=== PATIENT | female | born 1970 | race Asian ===

== ENCOUNTER 2024-07-02 18:56 | Inpatient (IN) | payer OTHER ==
[~2024-07-02] VITALS: Ht 160 cm; Wt 61.7 kg
[2024-07-02 20:04] LABS: BASO % 0.2 % (0.0-1.0); EOS % 0.1 % (0.0-3.0); HEMATOCRIT 41.3 % (36.0-47.0); HEMOGLOBIN 14.5 g/dl (12.0-15.5); LYMPH # 0.9 10^3/uL (1.5-5.0); LYMPH % 5.5 % (24.0-44.0); MEAN CORPUSCULAR HEMOGLOBIN 29.5 pg (27.0-33.0); MEAN CORPUSCULAR HGB CONC 35.1 g/dl (32.0-36.5); MEAN CORPUSCULAR VOLUME 83.9 fl (80.0-96.0); MONO # 1.2 10^3/uL (0.0-0.8); MONO % 6.8 % (2.0-8.0); NEUTROPHILS # 14.8 10^3/uL (1.5-8.5); NEUTROPHILS % 86.6 % (36.0-66.0); PLATELET COUNT, AUTOMATED 346 10^3/uL (150-450); RED BLOOD COUNT 4.92 10^6/uL (4.00-5.40); WHITE BLOOD COUNT 17.1 10^3/uL (4.0-10.0)
[2024-07-02 20:21] LABS: ERYTHROCYTE SEDIMENTATION RATE 108 mm/hr (0-30)
[2024-07-02 20:50] LABS: BLOOD UREA NITROGEN 21 MG/DL (9-23); C REACTIVE PROTEIN QUANTITATIV 28.16 MG/DL (<1.0); CALCIUM LEVEL 8.8 MG/DL (8.5-10.1); CARBON DIOXIDE LEVEL 23 MMOL/L (20-31); CHLORIDE LEVEL 92 MMOL/L (98-107); CREATININE FOR GFR 0.49 MG/DL (0.55-1.30); GLOMERULAR FILTRATION RATE > 60.0 (>51); GLUCOSE, FASTING 448 MG/DL (60-100); POTASSIUM SERUM 4.9 MMOL/L (3.5-5.1); SODIUM LEVEL 129 MMOL/L (136-145)
[2024-07-02] MEDS ORDERED: ISOVUE-370 76% 100ML VIAL As Ordered ONE (21:24)
[2024-07-02] MEDS: NS (Normal Saline) 0.9% 1,000 ML IV ONE (21:45)
[2024-07-02] MEDS: AMPICILLIN SOD/SULBACTAM SOD 3 GM in DEXTROSE 5% (D5W) MINI-BAG PLU 100 ML IV ONE (21:45)
[2024-07-02] MEDS: HumuLIN R (REGULAR) INSULIN (NovoLIN R) **100U/ML** PER UNIT IV ONE (21:45)
[2024-07-02] MEDS: ONDANSETRON 4MG 2ML VIAL IV ONE (22:47)
[2024-07-02] MEDS: MORPHINE 2 MG/ML 1ML VIAL IV ONE (22:47)
[2024-07-02] MEDS: dexAMETHasone 20MG/5ML VIAL IV ONE (23:59)
[2024-07-03] MEDS: MORPHINE 4 MG/ML 1ML VIAL IV PRN (00:23)
[2024-07-03] MEDS: HumuLIN R (REGULAR) INSULIN (NovoLIN R) **100U/ML** PER UNIT IV ONE (00:24)
[2024-07-03] MEDS ORDERED: GLUCAGON INJ 1MG VIAL SC PRN (00:25)
[2024-07-03] MEDS ORDERED: GLUCOSE 4 GM CHEW PO PRN (00:25)
[2024-07-03] MEDS ORDERED: DEXTROSE 50% 50ML SYRINGE IV PRN (00:25)
[2024-07-03 00:47] LABS: HEMOGLOBIN A1c 11.7 % (4.0-6.0)
[2024-07-03] MEDS ORDERED: IBUP-1114 PO (01:04)
[2024-07-03] MEDS ORDERED: OXYC1TAB23 PO (01:04)
[2024-07-03] MEDS ORDERED: AMOX500C PO (01:04)
[2024-07-03] MEDS ORDERED: CLIN-250 PO (01:04)
[2024-07-03] MEDS ORDERED: PERI12LIQ PO (01:04)
[2024-07-03] MEDS ORDERED: HOME MED LIST COMPLETE! XX SCH (01:05)
[2024-07-03] MEDS: INSULIN LISPRO (NovoLOG) PER UNIT SC SCH ×3 (01:36→20:51)
[2024-07-03] MEDS: LR 1,000 ML IV SCH (01:36)
[2024-07-03 02:19] VITALS: BP 150/87; TEMP 98.1; O2SAT 95
[2024-07-03 04:21] VITALS: BP 125/79; TEMP 98.1; O2SAT 95
[2024-07-03] MEDS: AMPICILLIN SOD/SULBACTAM SOD 3 GM in DEXTROSE 5% (D5W) MINI-BAG PLU 100 ML IV SCH (04:29)
[2024-07-03] MEDS: KETOROLAC 30 MG/ML 1ML VIAL IV ONE (04:30)
[2024-07-03 06:06] LABS: HEMATOCRIT 38.1 % (36.0-47.0); HEMOGLOBIN 13.1 g/dl (12.0-15.5); MEAN CORPUSCULAR HEMOGLOBIN 28.5 pg (27.0-33.0); MEAN CORPUSCULAR HGB CONC 34.4 g/dl (32.0-36.5); MEAN CORPUSCULAR VOLUME 82.8 fl (80.0-96.0); PLATELET COUNT, AUTOMATED 337 10^3/uL (150-450); WHITE BLOOD COUNT 14.1 10^3/uL (4.0-10.0)
[2024-07-03 06:17] LABS: INR 1.02; PROTHROMBIN TIME 13.7 SECONDS (12.5-14.5)
[2024-07-03 06:29] LABS: BLOOD UREA NITROGEN 17 MG/DL (9-23); CALCIUM LEVEL 8.2 MG/DL (8.5-10.1); CARBON DIOXIDE LEVEL 22 MMOL/L (20-31); CHLORIDE LEVEL 99 MMOL/L (98-107); CHOLESTEROL LEVEL 188 MG/DL (<200); CHOLESTEROL RISK RATIO 5.15 (<5); CREATININE FOR GFR 0.41 MG/DL (0.55-1.30); GLOMERULAR FILTRATION RATE > 60.0 (>51); GLUCOSE, FASTING 233 MG/DL (60-100); HDL CHOLESTEROL 36.5 MG/DL (>40); LDL CHOLESTEROL 123.7 MG/DL (<100); NON-HDL-C 151.5 MG/DL; POTASSIUM SERUM 4.8 MMOL/L (3.5-5.1); SODIUM LEVEL 135 MMOL/L (136-145); TRIGLYCERIDES LEVEL 139 MG/DL (<150)
[2024-07-03] MEDS ORDERED: VANCOMYCIN HCL 1,000 MG, VIAL MATE ADAPTER 1 EACH in NS 250 ML IV SCH (07:45)
[2024-07-03 08:32] LABS: ANTI-STREPTOLYSIN O QUANT < 25.0 IU/ML (<195)
[2024-07-03] MEDS: VANCOMYCIN HCL 1,250 MG, VIAL MATE ADAPTER 1 EACH in NS 250 ML IV ONE (09:42)
[2024-07-03 09:44] LABS: PROCALCITONIN 0.34 ng/ml
[2024-07-03] MEDS ORDERED: LIDOCAINE 1% MDV 20ML VIAL As Ordered ONE (10:17)
[2024-07-03] MEDS: ENOXAPARIN 40MG/0.4ML SYRINGE (J1650 PER 10MG) SC SCH (12:36)
[2024-07-03] MEDS: CHLORHEXIDINE GLUCONATE 0.12 % 15ML UDC (PERIDEX ORAL RINSE) MT SCH (12:37)
[2024-07-03 12:45] VITALS: BP 145/92; TEMP 97.7; O2SAT 96
[2024-07-03] MEDS: VANCOMYCIN HCL 750 MG, VIAL MATE ADAPTER 1 EACH in NS 250 ML IV SCH (15:34)
[2024-07-03] MEDS: PERCOCET 5MG/325MG TAB PO PRN (17:51)
[2024-07-03 20:33] VITALS: BP 152/91; TEMP 97.7; O2SAT 95
[2024-07-03] MEDS: LanTUS (INSULIN GLARGINE INJ) 1 UNITS/0.01 ML SC SCH (20:51)
[2024-07-04] MEDS: MORPHINE 2 MG/ML 1ML VIAL IV PRN (04:06)
[2024-07-04 04:21] VITALS: BP 150/90; TEMP 97.9; O2SAT 94
[2024-07-04 05:56] LABS: HEMATOCRIT 40.1 % (36.0-47.0); MEAN CORPUSCULAR HEMOGLOBIN 28.9 pg (27.0-33.0); MEAN CORPUSCULAR HGB CONC 34.9 g/dl (32.0-36.5); MEAN CORPUSCULAR VOLUME 82.9 fl (80.0-96.0); PLATELET COUNT, AUTOMATED 400 10^3/uL (150-450); RED BLOOD COUNT 4.84 10^6/uL (4.00-5.40); WHITE BLOOD COUNT 13.6 10^3/uL (4.0-10.0)
[2024-07-04 06:18] LABS: C REACTIVE PROTEIN QUANTITATIV 14.07 MG/DL (<1.0)
[2024-07-04 06:20] LABS: ALBUMIN 2.1 G/DL (3.2-5.2); ALKALINE PHOSPHATASE 140 U/L (35-104); ALT/SGPT 20 U/L (7.0-40); AST/SGOT 16 U/L (<34); BILIRUBIN,TOTAL 0.3 MG/DL (0.3-1.2); BLOOD UREA NITROGEN 13 MG/DL (9-23); CALCIUM LEVEL 8.6 MG/DL (8.5-10.1); CARBON DIOXIDE LEVEL 27 MMOL/L (20-31); CHLORIDE LEVEL 98 MMOL/L (98-107); CREATININE FOR GFR 0.35 MG/DL (0.55-1.30); GLOMERULAR FILTRATION RATE > 60.0 (>51); GLUCOSE, FASTING 392 MG/DL (60-100); POTASSIUM SERUM 4.5 MMOL/L (3.5-5.1); SODIUM LEVEL 136 MMOL/L (136-145); TOTAL PROTEIN 6.3 G/DL (5.7-8.2)
[2024-07-04 06:25] LABS: PROCALCITONIN 0.23 ng/ml
[2024-07-04] MEDS: LanTUS (INSULIN GLARGINE INJ) 1 UNITS/0.01 ML SC SCH (08:43)
[2024-07-04] MEDS ORDERED: ENOXAPARIN 40MG/0.4ML SYRINGE (J1650 PER 10MG) SC SCH (09:00)
[2024-07-04 12:00] VITALS: BP 142/84; TEMP 97.7; O2SAT 96
[2024-07-04] MEDS: VANCOMYCIN HCL 1,000 MG, VIAL MATE ADAPTER 1 EACH in NS 250 ML IV SCH (15:05)
[2024-07-04] MEDS: INSULIN LISPRO (NovoLOG) PER UNIT SC SCH (17:15)
[2024-07-04 20:00] VITALS: BP 166/92; TEMP 97.5; O2SAT 97
[2024-07-05] VITALS (8 sets, daily range): BP systolic 124–157; BP diastolic 74–94; TEMP 97.5–97.7; O2SAT 97–99
[2024-07-05 06:02] LABS: BASO % 0.3 % (0.0-1.0); EOS % 0.2 % (0.0-3.0); HEMATOCRIT 42.1 % (36.0-47.0); HEMOGLOBIN 14.6 g/dl (12.0-15.5); LYMPH # 3.3 10^3/uL (1.5-5.0); LYMPH % 28.2 % (24.0-44.0); MEAN CORPUSCULAR HEMOGLOBIN 28.8 pg (27.0-33.0); MEAN CORPUSCULAR HGB CONC 34.7 g/dl (32.0-36.5); MONO # 1.1 10^3/uL (0.0-0.8); MONO % 9.3 % (2.0-8.0); NEUTROPHILS # 7.1 10^3/uL (1.5-8.5); NEUTROPHILS % 60.1 % (36.0-66.0); PLATELET COUNT, AUTOMATED 388 10^3/uL (150-450); RED BLOOD COUNT 5.07 10^6/uL (4.00-5.40); WHITE BLOOD COUNT 11.8 10^3/uL (4.0-10.0)
[2024-07-05 06:33] LABS: BLOOD UREA NITROGEN 10 MG/DL (9-23); C REACTIVE PROTEIN QUANTITATIV 6.19 MG/DL (<1.0); CALCIUM LEVEL 8.6 MG/DL (8.5-10.1); CARBON DIOXIDE LEVEL 34 MMOL/L (20-31); CHLORIDE LEVEL 99 MMOL/L (98-107); CREATININE FOR GFR 0.38 MG/DL (0.55-1.30); GLOMERULAR FILTRATION RATE > 60.0 (>51); GLUCOSE, FASTING 88 MG/DL (60-100); POTASSIUM SERUM 3.7 MMOL/L (3.5-5.1); SODIUM LEVEL 142 MMOL/L (136-145)
[2024-07-05] MEDS: LanTUS (INSULIN GLARGINE INJ) 1 UNITS/0.01 ML SC SCH (09:00)
[2024-07-05] MEDS: LIDOCAINE W/EPINEPHRINE 1% 20ML VIAL SC ONE (10:53)
[2024-07-05] MEDS ORDERED: fentaNYL 100 MCG/2 ML INJECTION IV PRN (11:50)
[2024-07-05] MEDS ORDERED: MORPHINE 2 MG/ML 1ML VIAL IV PRN (11:50)
[2024-07-05] MEDS ORDERED: oxyCODONE 5MG TAB PO PRN ×2 (11:50→17:00)
[2024-07-05] MEDS ORDERED: ONDANSETRON 4MG 2ML VIAL IV PRN ×2 (11:50→17:00)
[2024-07-05] MEDS ORDERED: diphenhydrAMINE 50MG/ML VIAL IV PRN ×2 (11:50→17:00)
[2024-07-05] MEDS: NS (Normal Saline) 0.9% 1,000 ML IV SCH (15:07)
[2024-07-05] MEDS ORDERED: SUGAMMADEX SODIUM 500 MG/5 ML VIAL (BRIDION) As Ordered ONE (15:42)
[2024-07-05] MEDS ORDERED: PHENYLephrine 500MCG 5ML (100MCG/ML) SYRINGE As Ordered ONE (15:50)
[2024-07-05] MEDS: LIDOCAINE W/EPINEPHRINE 1% 20ML VIAL As Ordered ONE (16:00)
[2024-07-05] MEDS ORDERED: KETOROLAC 30 MG/ML 1ML VIAL As Ordered ONE (16:54)
[2024-07-05] MEDS ORDERED: LIDOCAINE 2% 100MG/5ML SDV (FOR ANES.) As Ordered ONE (16:54)
[2024-07-05] MEDS ORDERED: ROCURONIUM BROMIDE 50MG/5ML VIAL As Ordered ONE (16:54)
[2024-07-05] MEDS ORDERED: propofoL 200 MG/20 ML VIAL As Ordered ONE (16:54)
[2024-07-05] MEDS ORDERED: ONDANSETRON 4MG 2ML VIAL As Ordered ONE (16:54)
[2024-07-05] MEDS ORDERED: fentaNYL 100 MCG/2 ML INJECTION As Ordered ONE (16:54)
[2024-07-05] MEDS ORDERED: MIDAZOLAM INJ 2MG/2ML VIAL As Ordered ONE (16:54)
[2024-07-05] MEDS: LR 1,000 ML IV SCH (17:00)
[2024-07-05] MEDS: fentaNYL 100 MCG/2 ML INJECTION IV PRN (17:04)
[2024-07-05] MEDS: MORPHINE 2 MG/ML 1ML VIAL IV PRN (17:17)
[2024-07-05] MEDS: VANCOMYCIN HCL 1,000 MG, VIAL MATE ADAPTER 1 EACH in NS 250 ML IV SCH (21:36)
[2024-07-05] MEDS: ATORVASTATIN 20 MG TAB PO SCH (21:37)
[2024-07-05] MEDS: ACETAMINOPHEN 325 MG TAB PO PRN (21:38)
[2024-07-06] VITALS (8 sets, daily range): BP systolic 99–187; BP diastolic 73–98; TEMP 97.2–97.9; O2SAT 95–97
[2024-07-06] MEDS: LR 1,000 ML IV SCH (05:00)
[2024-07-06] MEDS: ANEXSIA, NORCO 7.5MG/325MG TABLET(HYDROCODONE/APAP) PO PRN (06:01)
[2024-07-06 06:25] LABS: BASO % 0.4 % (0.0-1.0); HEMATOCRIT 43.1 % (36.0-47.0); HEMOGLOBIN 14.7 g/dl (12.0-15.5); LYMPH # 1.7 10^3/uL (1.5-5.0); MEAN CORPUSCULAR HGB CONC 34.1 g/dl (32.0-36.5); MONO # 0.7 10^3/uL (0.0-0.8); MONO % 6.2 % (2.0-8.0); NEUTROPHILS % 75.7 % (36.0-66.0); PLATELET COUNT, AUTOMATED 399 10^3/uL (150-450); RED BLOOD COUNT 5.07 10^6/uL (4.00-5.40); WHITE BLOOD COUNT 10.5 10^3/uL (4.0-10.0)
[2024-07-06 06:52] LABS: C REACTIVE PROTEIN QUANTITATIV 7.26 MG/DL (<1.0)
[2024-07-06 06:56] LABS: BLOOD UREA NITROGEN 12 MG/DL (9-23); CALCIUM LEVEL 8.1 MG/DL (8.5-10.1); CARBON DIOXIDE LEVEL 32 MMOL/L (20-31); CHLORIDE LEVEL 97 MMOL/L (98-107); CREATININE FOR GFR 0.44 MG/DL (0.55-1.30); GLOMERULAR FILTRATION RATE > 60.0 (>51); GLUCOSE, FASTING 439 MG/DL (60-100); POTASSIUM SERUM 4.7 MMOL/L (3.5-5.1); SODIUM LEVEL 136 MMOL/L (136-145)
[2024-07-06] MEDS: LOSARTAN 25 MG TAB PO SCH (11:30)
[2024-07-06] MEDS: VANCOMYCIN HCL 500 MG in DEXTROSE 5% (D5W) MINI-BAG PLU 100 ML IV ONE (12:08)
[2024-07-07 04:03] VITALS: BP 160/95; TEMP 97.5; O2SAT 93
[2024-07-07 06:18] LABS: BASO % 0.5 % (0.0-1.0); EOS # 0.2 10^3/uL (0.0-0.5); HEMATOCRIT 38.8 % (36.0-47.0); HEMOGLOBIN 13.1 g/dl (12.0-15.5); LYMPH # 4.6 10^3/uL (1.5-5.0); LYMPH % 57.1 % (24.0-44.0); MEAN CORPUSCULAR HEMOGLOBIN 29.4 pg (27.0-33.0); MEAN CORPUSCULAR HGB CONC 33.8 g/dl (32.0-36.5); MONO # 0.5 10^3/uL (0.0-0.8); MONO % 6.2 % (2.0-8.0); NEUTROPHILS # 2.5 10^3/uL (1.5-8.5); NEUTROPHILS % 31.1 % (36.0-66.0); PLATELET COUNT, AUTOMATED 328 10^3/uL (150-450); RED BLOOD COUNT 4.46 10^6/uL (4.00-5.40)
[2024-07-07 06:40] LABS: C REACTIVE PROTEIN QUANTITATIV 3.23 MG/DL (<1.0)
[2024-07-07 06:42] LABS: BLOOD UREA NITROGEN 7 MG/DL (9-23); CARBON DIOXIDE LEVEL 30 MMOL/L (20-31); CHLORIDE LEVEL 100 MMOL/L (98-107); CREATININE FOR GFR 0.41 MG/DL (0.55-1.30); GLOMERULAR FILTRATION RATE > 60.0 (>51); GLUCOSE, FASTING 163 MG/DL (60-100); POTASSIUM SERUM 3.9 MMOL/L (3.5-5.1); SODIUM LEVEL 141 MMOL/L (136-145)
[2024-07-07 12:00] VITALS: BP 159/94; TEMP 97.5; O2SAT 97
[2024-07-07 20:00] VITALS: BP_SYST 158; BP_DIAS 9; BP_DIAS 90; TEMP 97.7; O2SAT 97
[2024-07-08] VITALS (7 sets, daily range): BP systolic 147–171; BP diastolic 77–99; TEMP 97.2–97.9; O2SAT 95–98
[2024-07-08 05:51] LABS: BASO % 0.6 % (0.0-1.0); EOS # 0.3 10^3/uL (0.0-0.5); EOS % 4.2 % (0.0-3.0); HEMATOCRIT 41.8 % (36.0-47.0); HEMOGLOBIN 14.4 g/dl (12.0-15.5); LYMPH # 2.9 10^3/uL (1.5-5.0); LYMPH % 44.3 % (24.0-44.0); MEAN CORPUSCULAR HEMOGLOBIN 29.3 pg (27.0-33.0); MEAN CORPUSCULAR HGB CONC 34.4 g/dl (32.0-36.5); MONO # 0.5 10^3/uL (0.0-0.8); MONO % 7.4 % (2.0-8.0); NEUTROPHILS # 2.7 10^3/uL (1.5-8.5); NEUTROPHILS % 41.4 % (36.0-66.0); PLATELET COUNT, AUTOMATED 352 10^3/uL (150-450); RED BLOOD COUNT 4.92 10^6/uL (4.00-5.40); WHITE BLOOD COUNT 6.6 10^3/uL (4.0-10.0)
[2024-07-08 06:18] LABS: BLOOD UREA NITROGEN 5 MG/DL (9-23); C REACTIVE PROTEIN QUANTITATIV 1.92 MG/DL (<1.0); CALCIUM LEVEL 8.6 MG/DL (8.5-10.1); CARBON DIOXIDE LEVEL 35 MMOL/L (20-31); CHLORIDE LEVEL 99 MMOL/L (98-107); CREATININE FOR GFR 0.39 MG/DL (0.55-1.30); GLOMERULAR FILTRATION RATE > 60.0 (>51); GLUCOSE, FASTING 152 MG/DL (60-100); POTASSIUM SERUM 4.2 MMOL/L (3.5-5.1); SODIUM LEVEL 140 MMOL/L (136-145)
[2024-07-08] MEDS ORDERED: oxyCODONE 5MG TAB PO PRN (13:55)
[2024-07-08] MEDS: oxyCODONE 5MG TAB PO PRN (16:42)
[2024-07-08] MEDS: LOSARTAN 25 MG TAB PO SCH (20:51)
[2024-07-09 04:17] VITALS: BP 162/87; TEMP 97.7; O2SAT 98
[2024-07-09 06:35] LABS: BASO % 0.6 % (0.0-1.0); EOS # 0.2 10^3/uL (0.0-0.5); EOS % 2.6 % (0.0-3.0); HEMATOCRIT 45.6 % (36.0-47.0); HEMOGLOBIN 15.4 g/dl (12.0-15.5); LYMPH # 3.1 10^3/uL (1.5-5.0); LYMPH % 43.9 % (24.0-44.0); MEAN CORPUSCULAR HEMOGLOBIN 28.6 pg (27.0-33.0); MEAN CORPUSCULAR HGB CONC 33.8 g/dl (32.0-36.5); MEAN CORPUSCULAR VOLUME 84.8 fl (80.0-96.0); MONO # 0.5 10^3/uL (0.0-0.8); MONO % 6.6 % (2.0-8.0); NEUTROPHILS # 3.2 10^3/uL (1.5-8.5); NEUTROPHILS % 44.9 % (36.0-66.0); PLATELET COUNT, AUTOMATED 400 10^3/uL (150-450); RED BLOOD COUNT 5.38 10^6/uL (4.00-5.40)
[2024-07-09 06:52] LABS: C REACTIVE PROTEIN QUANTITATIV 1.19 MG/DL (<1.0)
[2024-07-09 06:53] LABS: BLOOD UREA NITROGEN < 5 MG/DL (9-23); CALCIUM LEVEL 9.4 MG/DL (8.5-10.1); CARBON DIOXIDE LEVEL 36 MMOL/L (20-31); CHLORIDE LEVEL 97 MMOL/L (98-107); CREATININE FOR GFR 0.42 MG/DL (0.55-1.30); GLOMERULAR FILTRATION RATE > 60.0 (>51); GLUCOSE, FASTING 112 MG/DL (60-100); POTASSIUM SERUM 4.2 MMOL/L (3.5-5.1); SODIUM LEVEL 143 MMOL/L (136-145)
[2024-07-09] MEDS: LOSARTAN 50MG TABLET PO SCH (08:07)
[2024-07-09] MEDS ORDERED: LANTINJ4 SC (10:23)
[2024-07-09] MEDS ORDERED: LANC30MI XX (11:46)
[2024-07-09] MEDS ORDERED: ATOR1TAB21 PO (11:46)
[2024-07-09] MEDS ORDERED: OXYC-517 PO (11:46)
[2024-07-09] MEDS ORDERED: ALCOPAD25 TOP (11:46)
[2024-07-09] MEDS ORDERED: BLOOKIT21 XX (11:46)
[2024-07-09] MEDS ORDERED: GLUC1TES2 XX (11:46)
[2024-07-09] MEDS ORDERED: PEN-308 SC (11:46)
[2024-07-09 12:22] VITALS: BP 154/78; TEMP 97.2; O2SAT 95
[2024-07-09] MEDS: AUGMENTIN 875 MG TAB PO SCH (13:57)
[2024-07-09 19:55] VITALS: BP 142/77; TEMP 97.9; O2SAT 96
[2024-07-10 04:31] VITALS: BP 159/98; TEMP 97.9; O2SAT 97
[2024-07-10 07:48] LABS: BASO % 0.4 % (0.0-1.0); EOS # 0.1 10^3/uL (0.0-0.5); EOS % 1.7 % (0.0-3.0); HEMATOCRIT 42.6 % (36.0-47.0); HEMOGLOBIN 14.4 g/dl (12.0-15.5); LYMPH # 2.7 10^3/uL (1.5-5.0); LYMPH % 34.9 % (24.0-44.0); MEAN CORPUSCULAR HGB CONC 33.8 g/dl (32.0-36.5); MEAN CORPUSCULAR VOLUME 85.9 fl (80.0-96.0); MONO # 0.5 10^3/uL (0.0-0.8); MONO % 5.9 % (2.0-8.0); NEUTROPHILS # 4.3 10^3/uL (1.5-8.5); NEUTROPHILS % 56.2 % (36.0-66.0); PLATELET COUNT, AUTOMATED 357 10^3/uL (150-450); RED BLOOD COUNT 4.96 10^6/uL (4.00-5.40); WHITE BLOOD COUNT 7.6 10^3/uL (4.0-10.0)
[2024-07-10 08:02] VITALS: BP 157/96
[2024-07-10 08:15] LABS: BLOOD UREA NITROGEN 9 MG/DL (9-23); CALCIUM LEVEL 9.4 MG/DL (8.5-10.1); CARBON DIOXIDE LEVEL 32 MMOL/L (20-31); CHLORIDE LEVEL 98 MMOL/L (98-107); CREATININE FOR GFR 0.47 MG/DL (0.55-1.30); GLOMERULAR FILTRATION RATE > 60.0 (>51); GLUCOSE, FASTING 277 MG/DL (60-100); POTASSIUM SERUM 4.5 MMOL/L (3.5-5.1); SODIUM LEVEL 141 MMOL/L (136-145)
[2024-07-10] MEDS ORDERED: LOSA-528 PO (12:29)
[2024-07-10] MEDS ORDERED: OXYC-517 PO (12:29)
[2024-07-10] MEDS ORDERED: METF10004 PO (12:29)
[2024-07-10] MEDS ORDERED: AMOX875T2 PO (12:29)
[2024-07-10 12:34] VITALS: BP 150/82
[2024-07-10] MEDS ORDERED: BLOOKIT XX (14:42)
== END 2024-07-10 14:06 | disposition home or self-care (01) | DRG 872 ==
LOC: M ED 18:56 → M ED INP 07-03 00:24 → M MS5PR 07-03 02:25
PROVIDERS: ADMIT Internal Medicine; ATTEND Internal Medicine
PROC: 0W923ZX Drainage of Face, Percutaneous Approach, Diagnostic (ICD-10-PCS; principal; 2024-07-03 10:30)
PROC: 0C9 Mouth and Throat, Drainage (ICD-10-PCS; 2024-07-05)
DX: A41.9 Sepsis, unspecified organism (principal); L02.01 Cutaneous abscess of face; K11.3 Abscess of salivary gland; E87.1 Hypo-osmolality and hyponatremia; L03.211 Cellulitis of face; L03.221 Cellulitis of neck; D72.0 Genetic anomalies of leukocytes; E11.65 Type 2 diabetes mellitus with hyperglycemia; Z79.2 Long term (current) use of antibiotics; E78.5 Hyperlipidemia, unspecified; I10 Essential (primary) hypertension; K02.9 Dental caries, unspecified

== ENCOUNTER → 2024-12-10 | Outpatient (REF) | payer OTHER ==
[~2024-12-10] MED LIST: ALCOPAD25 TOP; AMOX500C PO; AMOX875T2 PO; ATOR1TAB21 PO; BLOOKIT XX; BLOOKIT21 XX; CLIN-250 PO; GLUC1TES2 XX; IBUP-1114 PO; LANC30MI XX; LANTINJ4 SC; LOSA-528 PO; METF10004 PO; OXYC-517 PO; OXYC1TAB23 PO; PEN-308 SC; PERI12LIQ PO
[2024-12-10 18:11] LABS: FREE T4 1.59 NG/DL (0.89-1.76)
[2024-12-10 18:12] LABS: ALT/SGPT 21 U/L (7.0-40); AST/SGOT 14 U/L (<34); CALCIUM LEVEL 9.5 MG/DL (8.5-10.1); CARBON DIOXIDE LEVEL 28 MMOL/L (20-31); CHLORIDE LEVEL 101 MMOL/L (98-107); CHOLESTEROL LEVEL 292 MG/DL (<200); CHOLESTEROL RISK RATIO 5.21 (<5); CREATININE FOR GFR 0.54 MG/DL (0.55-1.30); GLOMERULAR FILTRATION RATE > 90.0 (>51); LDL CHOLESTEROL 203.0 MG/DL (<100); NON-HDL-C 236.0 MG/DL; POTASSIUM SERUM 4.2 MMOL/L (3.5-5.1); SODIUM LEVEL 139 MMOL/L (136-145); TRIGLYCERIDES LEVEL 165 MG/DL (<150)
[2024-12-10 18:16] LABS: BASO # 0.0 10^3/uL (0.0-0.2); BASO % 0.7 % (0.0-1.0); EOS # 0.2 10^3/uL (0.0-0.5); EOS % 3.7 % (0.0-3.0); LYMPH # 2.7 10^3/uL (1.5-5.0); LYMPH % 49.6 % (24.0-44.0); MONO # 0.4 10^3/uL (0.0-0.8); MONO % 6.5 % (2.0-8.0); NEUTROPHILS # 2.1 10^3/uL (1.5-8.5); NEUTROPHILS % 39.5 % (36.0-66.0); PLATELET COUNT, AUTOMATED 243 10^3/uL (150-450)
[2024-12-10 18:49] LABS: ESTIMATED AVERAGE GLUCOSE 266.0 MG/DL (60-110)
== END ==
LOC: M SFHCLERA 07:45
PROVIDERS: ATTEND Student in an Organized Health Care Education/Training Program
DX: Z00.00 Encounter for general adult medical examination without abnormal findings (principal)

== ENCOUNTER → 2025-03-16 | Outpatient (REF) | payer OTHER ==
[2025-03-16 18:53] LABS: ESTIMATED AVERAGE GLUCOSE 177.0 MG/DL (60-110)
== END ==
LOC: M SFHCLERA 08:45
PROVIDERS: ATTEND Student in an Organized Health Care Education/Training Program
DX: E11.65 Type 2 diabetes mellitus with hyperglycemia (principal)